=== PATIENT | female | born 1990 ===

== ENCOUNTER 2017-05-06 08:01 | Inpatient (IN) | payer BC ==
--- NOTE | 2017-05-06 08:19 | C.PDOC ---
History Of Present Illness 26 y/o female transferred from [facility] for psych admission to s/o Dr Trujillo with diagnosis of major depression, suicidal ideation. At present time , patient is comfortable, cooperative, appropriate, pt denies any active physical complaints. Patient reports she developed some depression shortly after delivering baby 03/16/17, has suicidal ideation. Denies history of depression in past, denies drug abuse. Time Seen by Provider: 05/06/17 08:03 Chief Complaint (Nursing): Psychiatric Evaluation History Per: Patient History/Exam Limitations: no limitations Onset/Duration Of Symptoms: Days Current Symptoms Are (Timing): Still Present Modifying Factor(s): None Associated Symptoms: Depression, Suicidal Thoughts Recent travel outside of the [place]: No Past Medical History Reviewed: Historical Data, Nursing Documentation, Vital Signs Vital Signs: Last Vital Signs Temp 98.4 F 05/08/17 07:38 Pulse 68 05/08/17 07:38 Resp 20 05/08/17 07:38 BP 89/56 L 05/08/17 07:38 Pulse Ox 98 05/06/17 08:19 - Medical History PMH: No Chronic Diseases Family History: States: Unknown Family Hx - Social History Hx Alcohol Use: No Hx Substance Use: No Review Of Systems Except As Marked, All Systems Reviewed And Found Negative. Constitutional: Negative for: Fever, Chills Cardiovascular: Negative for: Chest Pain Respiratory: Negative for: Cough, Shortness of Breath Gastrointestinal: Negative for: Nausea, Vomiting Skin: Negative for: Rash Psych: Positive for: Depression, Suicidal ideation Physical Exam - Physical Exam Appears: Well, Non-toxic, No Acute Distress Skin: Normal Color, Warm, Dry, No Rash Head: Atraumatic, Normacephalic Eye(s): bilateral: PERRL Nose: No Discharge Oral Mucosa: Moist Tongue: Normal Appearing Lips: Normal Appearing Throat: No Erythema, No Exudate, No Drooling Neck: Trachea Midline, Supple Chest: Symmetrical Cardiovascular: Rhythm Regular, No JVD Respiratory: No Decreased Breath Sounds, No Accessory Muscle Use, No Rales, No Rhonchi, No Stridor, No Wheezing Gastrointestinal/Abdominal: Soft, No Tenderness, No Guarding, No Rebound Back: Normal Inspection, No CVA Tenderness Extremity: Normal ROM, No Pedal Edema, Capillary Refill (< 2 sec.), No Deformity Neurological/Psych: Oriented x3, Normal Speech, Normal Cognition ED Course And Treatment O2 Sat by Pulse Oximetry: 98 (RA) Pulse Ox Interpretation: Normal Progress Note: Transfer paperwork reviewed, diagnostics review and appears without acute abnormalities. Admission ordered. Disposition - Disposition Disposition: HOSPITALIZED Disposition Time: 08:30 Condition: STABLE - Clinical Impression Clinical Impression: Moderate major depression, single episode - PA / YARD ENGINEER / Resident Statement MD/DO has reviewed & agrees with the documentation as recorded. - Scribe Statement The provider has reviewed the documentation as recorded by the Scribe SM All medical record entries made by the Scribe were at my direction and personally dictated by me. I have reviewed the chart and agree that the record accurately reflects my personal performance of the history, physical exam, medical decision making, and the department course for this patient. I have also personally directed, reviewed, and agree with the discharge instructions and disposition.
[2017-05-06 08:25] VITALS: O2SAT 98
--- NOTE | 2017-05-06 10:43 | PCM.BM ---
<EvaristoKrystin C - Last Filed: 05/06/17 10:40> Treatment Plan Problems - Problems identified on initial assessmt Depression Date Initiated: 05/06/17 Time Initiated: 09:00 Assessment reference: NA Status: Active Treatment assets and liabiliti Patient Assests: cooperative, ADL independent, physically healthy, negotiates basic needs, cognitively intact Patient Liabilities: live alone (Lived with and 3 children), financial problems (1 month old baby, got a new job, will start next month), medical problems (c/o viginal bleed) - Milieu Protocol Maintain good personal hygiene: daily Encourage regular showers, daily Remind patient to perform daily oral care, other Assist patient to perform ADL's (Self) Conduct patient checks and document Observation sheet: Q15 minutes (For safety) Maintain personal safety: every shift Educate patient to report safety concerns to staff, every shift Monitor environment for contraband/sharps Medication safety: Monitor for expected outcome, potential side effects: every shift, Assess barriers to learning: every shift, Assess readiness for medication education: every shift <Bri Manzano - Last Filed: 05/06/17 11:12> Family Contact Family involvement: Family/SO is involved Family contact: Patient declines to allow family contact at present - Goals for Treatment Patient goals for treatment: "I'll go to outpatient treatment." Discharge/Continuing Care - Education Needs Education Needs: Patient Medication, Patient Coping Skills - Discharge Discharge Criteria: Tolerates medication w/o severe side effects, Free of Suicidal thoughts, Reduction of target symptoms Discharge to:: Home, With Family - Treatment Team Participation Discussed with Family/SO: No Was Patient/Family/SO present at Treatment Team Meeting: Yes <Piper Junior - Last Filed: 05/06/17 11:17> - Diagnosis (1) Major depressive disorder, single episode, severe w psychotic behavior Status: Acute Interventions: 05/06/17 11:16 * Assess/adjust medications daily and /or as needed * See patient on an individual basis 7x/week to assess level of manic behaviors and stability * Discuss risks, benefits, side effects and alternatives of medications
--- NOTE | 2017-05-06 10:49 | PCM.PSYCH ---
Initial Psychiatric Evaluation - Initial Psychiatric Evaluation Type of Admission: Voluntary Legal Status: Capacity Chief Complaint (in patient's own words): I feel depressed History of Present Illness and Precipitating Events: Patient is a 26 year old female, with 3 children, currently unemployed but supported by her . Patient states that she had a baby on 03/16/2017 and since that time has had some symptoms of depression. She was recently evaluated by her MINE SAFETY ENGINEER Dr. Garrett for her final visit, and the results of her post- depression screen were concerning. Dr. Garrett recommended admission to the psychiatric unit at [facility], but patient was transferred here because she wanted to be closer to her home. Patient remains open and cooperative throughout the interview, with no signs of distress. Patient denies any history of seeing a psychiatrist, being hospitalized for psychiatric illnesses, or ever being on medicine for depression. She states that after the recent of her baby in March, she has been feeling anxious, hopeless, helpless, and occasionally agitated. She also notes that she started scratching her face, but did not do it on purpose, and has no history of scratching or cutting herself in the past. She denies feeling anything similar after her first two pregnancies. Patient states that she has been sleeping well , but reports a decreased interest in her usual activities like going out, sometimes feeling worthless, normal energy levels, normal ability to concentrate , and decreased appetite. Patient reports unhappiness with her post- body. She states that her pre- weight was 105lbs and she currently weighs 130lbs. She notes that she was able to quickly lose the weight after her previous 2 pregnancies. She states that she is unhappy with her body and none of her clothes fit, which is part of the reason she never wants to go out. She denies feeling restless or having racing thoughts. She states that 2 weeks ago when she was feeling frustrated, she had the thought that she wanted to hang herself, but had no intention or plan to do so. Patient denies visual or auditory hallucinations. She states that last year she had the sensation that someone was watching her while she slept, but it did not interfere with her life and it eventually resolved. Denies feelings like she is being followed or that her thoughts are being broadcast. 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, currently unemployed, will start working at the [employer] in May 2017 Drug use: Smoked marijuana socially, maximum of 7 occasions, 9 years ago ETOH: denies alcohol use, last use was 5 years ago, only ever drank in social settings (max of 2 drinks) Tobacco: tried cigarettes 1x in high school and tried hookah once, otherwise denies tobacco use Past Psychiatric History - Past Psychiatric History Previous Treatment History: None Pertinent Medical Hx (Current Medical&Sleep Prob, Allergies): Allergies Allergy/AdvReac Type Severity Reaction Status Date / Time No Known Allergies Allergy Verified 05/06/17 08:03 No Known Home Med 05/06/17 Review of Systems - Review of Systems All systems: reviewed and no additional remarkable complaints except - Psychiatric Psychiatric: Anxiety, Depression, Irritability, Suicidal Ideation Mental Status Examination - Personal Presentation Personal Presentation: Looks stated age - Affect Affect: Constricted, Depressed - Motor Activity Motor Activity: Calm - Reliability in Providing Information Reliability in Providing Information: Good - Speech Speech: Organized - Mood Mood: Depressed, Anxious - Formal Thought Process Formal Thought Process: No Impairment - Obsessions/Compulsions Obsessions: No Compulsions: No - Cognitive Functions Orientation: Person, Place, Situation, Time Sensorium: Alert Attention/Concentration: Attentive Abstract Thinking: [place] Estimate of Intelligence: Below average Judgement: Imparied, as evidence by: Poor judgement, Imparied, as evidence by: Lack of insight into illness - Risk Risk: Suicidal, Diminished functioning - Strength & Assets Inventory Strength & Assets Inventory: Family support DSM 5 DX - DSM 5 DSM 5 Diagnosis: 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
--- NOTE | 2017-05-07 16:19 | PCM.PYCHPN ---
Psychiatric Progress Note - Psychiatric Progress Note Patient seen today, length of contact: 15 minutes Patient Chief Complaint: I feel fine now Problems Identified/Issues Discussed: The patient is seen, chart reviewed, case discussed with staff. The patient is compliant with medications and reports no side effects. Patient states that she "slept like a baby" and feels fine but misses her children. She states that her came to visit her yesterday. Her mood is improved and patient denies any visual or auditory hallucinations. She denies suicidal ideation at this time. She expresses the wish to go home soon. Symptoms are improving but needs more time to stabilize. After care discussed, support and psychoeducation given. Medication Change: No ( ) Medical Record Reviewed: Yes Mental Status Examination - Cognitive Function Orientation: Person, Place, Situation, Time Memory: Intact Attention: WNL Concentration: WNL Association: WNL Fund of Knowledge: WNL - Mood Mood: Depressed, Anxious - Affect Affect: Constricted, Depressed - Speech Speech: Appropriate - Formal Thought Process Formal Thought Process: No Impairment - Suicidal Ideation Suicidal Ideation: No - Homicidal Ideation Homicidal Ideation: No Goal/Treatment Plan - Goal/Treatment Plan Need for Continued Stay: Remain at risks for inpatient hospitalization, Discharge may exacerbated symptoms Progress Toward Problem(s) and Goals/Treatment Plan: 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
[2017-05-08 07:38] VITALS: BP 89/56; PULSE 68; RESP 20; TEMP 98.4
--- NOTE | 2017-05-08 09:27 | PCM.PYCHDC ---
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 Reason for request. 2. Findings. 3. Follow-up Summary of Hospital Course include:: 1. Description of specific treatment plan utilized for patients during their course of treatmen. 2. Summarize the time- course for resolution of acute symptoms and/or regressed behaviors. 3. Describe issues identified and worked on during hospitalization. 4. Describe medication utilized. 5. Describe medical problems identified and treated. 6. Reassessment of suicide risk Summary of Hospital Course: The patient was admitted and started on treatment with psychotherapy, support, psychoeducation and medications. CA and CBT used. The patient attended groups and activities, as well as milieu therapy. All the risks and benefits of medications are discussed and the patient understood and agreed. The patient improved with the treatments provided. She states that she feels good at present and "slept like a baby" again last night. Her and her father visited her last night. She reports no side effects from the medications. Denies feeling hopeless, helpless, anxious or nervous. She has no suicidal or homicidal ideation. She denies hearing visual or auditory hallucinations and denies feeling like anyone is watching, following or out to get her. Aftercare discussed with the patient. Discussed stress management, and encouraged her to seek help caring for her children from her parents and siblings. Case discussed with patient's Wai. He agrees that patient's mood is improved and understands the plan for her discharge. 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 Follow after care plan as discussed. Use stress management skills discussed. Come to ER or call 911 if suicidal, homicidal or symptoms return. Seek help from family members and friends to care for children when overwhelmed. 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
[2017-05-09] MEDS ORDERED: Pneumococcal 23-Valent Vaccine IM ONE (10:00)
== END 2017-05-08 11:45 | disposition home or self-care (01) | DRG 885 ==
LOC: C.ER 08:01 → UNDOADMIN 08:16 → C.5E 08:16 → UNDODISIN 05-08 11:45
PROVIDERS: ADMIT Psychiatry & Neurology Psychiatry; ATTEND Psychiatry & Neurology Psychiatry
DX: F32.3 Major depressive disorder, single episode, severe with psychotic features (principal); R45.851 Suicidal ideations